=== PATIENT | female | born 1955 | race Caucasian/White ===

== ENCOUNTER → 2017-01-01 | Day surgery (SDC) | payer BC ==
[~2017-01-01] VITALS: Ht 166.4 cm; Wt 138.6 kg
[~2017-01-01] MED LIST: ALBUAER3 INH; ALPR0.5T3 PO; AMLO10TA2 PO; ATEN50TA PO; CHLORHEXIDINE GLUCONATE 2 % 1 PACK (2 CLOTHS) TOPICAL PRN; CLON0.1T PO; DONE10TA7 PO; FLUO40CA PO; INSULIN HUMAN REGULAR 1,000 UNITS/10 ML VIAL SQ PRN; KETOROLAC TROMETHAMINE 30 MG/ML (IVP) VIAL ONE; LACTATED RINGER'S 1000 ML IV PRN; LORA1TAB12 PO; LOSA100T PO; METOPROLOL TARTRATE 25 MG TAB PO PRN; ONDANSETRON HCL 4 MG/2 ML VIAL IV PUSH ONE; POVIDONE IODINE 5% (ANTISEPSIS KIT) 4 APPLICATIONS EACH NARE PRN; PROPOFOL 200 MG/20 ML AMP IV ONE; SODIUM CHLORID 0.9% 500 ML IV PRN; ZOLO100T PO; ceFAZolin 1,000 MG/NS 100 ML IV SCH; ePHEDrine/NS 25 MG/5 ML SYR IV ONE; fentaNYL CITRATE 250 MCG/5 ML AMP ONE
[2017-01-01 07:01] VITALS: BP 177/88; PULSE 54; RESP 24; TEMP 97.9; O2SAT 94
[2017-01-01 07:08] LABS: MEAN CELL VOLUME 87.9 FL (80.0-100.0); MEAN CORPUSCULAR HEMOGLOBIN 28.9 PG (27.0-34.0); MEAN CORPUSCULAR HGB CONC 32.8 % (32.0-36.0); PLATELET COUNT 243 TH/MM3 (150-450); RED BLOOD COUNT 4.89 MIL/MM3 (4.00-5.30); RED CELL DISTRIBUTION WIDTH 13.4 % (11.6-17.2); REVIEW FLAG FINAL; WHITE BLOOD COUNT 6.6 TH/MM3 (4.0-11.0)
--- NOTE | 2017-01-01 08:54 | PD.OP ---
Operative Report Date of Surgery: Jan 01, 2017 Preoperative Diagnosis: (1) Postmenopausal bleeding (2) Endometrial polyp (3) Morbid (severe) obesity due to excess calories Postoperative Diagnosis: (1) Postmenopausal bleeding (2) Endometrial polyp (3) Morbid (severe) obesity due to excess calories Procedure: hysteroscopy with polypectomy Dilation and curettage Anesthesia: general by LMA; Frances Surgeon: Kathleen Lim Lock Technician(s): Laura Alcantar Surgeon: n/a Operation and Findings: Indications: [61 y/o obese patient with post-menopausal bleeding found to have an endocervical polyp on exam, and endometrial p[olyp on biopsy and ultrasound.- ] Findings: Patient was found on hysteroscopic view to have [a large polyp] confirmed to be removed by repeat hysteroscopy post dilation and curettage. Procedure: Patient was brought to the OR and laid supine on the table. After inducing general anesthesia she was positioned in low stirrups in dorso- lithotomy position. An open-sided speculum was placed in the vagina after Betadine prep and time out. The anterior lip of the cervix was grasped with a single tooth tenaculum, and the cervix was dilated to accept a standard rigid hysteroscope. After viewing, the polyp was extracted with polyps forceps. We tried to set up the MyoSure device, but were unsuccessful in getting the set-up correct technically. The endometrium was the thoroughly sampled using a medium sharp curet. Moderate tissue returned. A second hysteroscopic view confirmed that all the findings described above were included in the specimen. The procedure being complete, the instruments were removed, the patient was replaced supine and she was awakened. She was transferred to the PACU breathing on her own in stable condition. Sponge, needle, and instrument counts were correct. Kathleen Lim MD Jan 01, 2017 08:54
[2017-01-01 10:00] VITALS: BP 139/62; PULSE 62; RESP 16; TEMP 98.2; O2SAT 93
== END | disposition home or self-care (01) ==
LOC: PHSDC 06:06
PROVIDERS: ATTEND Obstetrics & Gynecology
DX: N95.0 Postmenopausal bleeding (principal); N84.0 Polyp of corpus uteri; E66.01 Morbid (severe) obesity due to excess calories; I10 Essential (primary) hypertension; G47.30 Sleep apnea, unspecified; J45.909 Unspecified asthma, uncomplicated; Z01.818 Encounter for other preprocedural examination; Z68.43 Body mass index [BMI] 50.0-59.9, adult
CPT/HCPCS: 00952; 36415; 58558; 85027; 88305; J0690; J1885; J2405; J3010; J7120